=== PATIENT | female | born 1960 | race Two or more races ===

== ENCOUNTER → 2018-12-28 | Outpatient (CLI) | payer MEDICARE, BC | END | disposition home or self-care (01) | LOC: MSC 14:00 | PROVIDERS: ATTEND Anesthesiology | DX: M50.10 Cervical disc disorder with radiculopathy, unspecified cervical region (principal); M46.96 Unspecified inflammatory spondylopathy, lumbar region; M96.1 Postlaminectomy syndrome, not elsewhere classified; M48.061 Spinal stenosis, lumbar region without neurogenic claudication; M47.27 Other spondylosis with radiculopathy, lumbosacral region; M79.2 Neuralgia and neuritis, unspecified; M46.26 Osteomyelitis of vertebra, lumbar region; M17.0 Bilateral primary osteoarthritis of knee; M76.61 Achilles tendinitis, right leg; M76.62 Achilles tendinitis, left leg; Z98.1 Arthrodesis status; Z96.89 Presence of other specified functional implants ==

== ENCOUNTER → 2019-05-17 | Outpatient (CLI) | payer MEDICARE, BC | END | disposition home or self-care (01) | LOC: MSC 16:00 | PROVIDERS: ATTEND Anesthesiology | DX: M46.96 Unspecified inflammatory spondylopathy, lumbar region (principal); M96.1 Postlaminectomy syndrome, not elsewhere classified; M47.27 Other spondylosis with radiculopathy, lumbosacral region; M79.2 Neuralgia and neuritis, unspecified; M47.26 Other spondylosis with radiculopathy, lumbar region; M48.061 Spinal stenosis, lumbar region without neurogenic claudication; M43.02 Spondylolysis, cervical region; M50.10 Cervical disc disorder with radiculopathy, unspecified cervical region; M17.0 Bilateral primary osteoarthritis of knee; M76.61 Achilles tendinitis, right leg; M76.62 Achilles tendinitis, left leg; Z79.899 Other long term (current) drug therapy; Z98.1 Arthrodesis status ==

== ENCOUNTER → 2019-06-14 | Outpatient (CLI) | payer MEDICARE, BC | END | disposition home or self-care (01) | LOC: MSC 14:15 | PROVIDERS: ATTEND Anesthesiology | DX: M46.96 Unspecified inflammatory spondylopathy, lumbar region (principal); M47.27 Other spondylosis with radiculopathy, lumbosacral region; M47.26 Other spondylosis with radiculopathy, lumbar region; M48.061 Spinal stenosis, lumbar region without neurogenic claudication; M50.10 Cervical disc disorder with radiculopathy, unspecified cervical region; M43.02 Spondylolysis, cervical region; M96.1 Postlaminectomy syndrome, not elsewhere classified; F51.04 Psychophysiologic insomnia; M79.2 Neuralgia and neuritis, unspecified; M17.0 Bilateral primary osteoarthritis of knee; M76.61 Achilles tendinitis, right leg; M76.62 Achilles tendinitis, left leg; Z79.899 Other long term (current) drug therapy ==

== ENCOUNTER → 2019-12-06 | Outpatient (CLI) | payer MEDICARE, BC | END | disposition home or self-care (01) | LOC: MSC 11:20 | PROVIDERS: ATTEND Anesthesiology | DX: M46.96 Unspecified inflammatory spondylopathy, lumbar region (principal); M47.27 Other spondylosis with radiculopathy, lumbosacral region; M47.26 Other spondylosis with radiculopathy, lumbar region; M48.061 Spinal stenosis, lumbar region without neurogenic claudication; M50.10 Cervical disc disorder with radiculopathy, unspecified cervical region; M43.02 Spondylolysis, cervical region; M96.1 Postlaminectomy syndrome, not elsewhere classified; M76.61 Achilles tendinitis, right leg; M76.62 Achilles tendinitis, left leg; M17.0 Bilateral primary osteoarthritis of knee; F51.04 Psychophysiologic insomnia; M79.2 Neuralgia and neuritis, unspecified; Z79.899 Other long term (current) drug therapy ==